=== PATIENT | male | born 1995 | race Two or more races ===

== ENCOUNTER 2020-01-02 13:12 | Emergency (ER) | payer SELFPAY ==
[~2020-01-02] VITALS: Ht 180.3 cm; Wt 106.0 kg
[2020-01-02 13:18] VITALS: BP 140/78
[2020-01-02] MEDS ORDERED: LORAZEPAM 2MG/ML CPJ IM STA (13:21)
[2020-01-02] MEDS ORDERED: HALOPERIDOL LACTATE 5MG/ML VIAL IM STA (13:21)
== END 2020-01-02 14:13 | disposition left against medical advice (07) ==
LOC: ER 13:12
DX: F15.10 Other stimulant abuse, uncomplicated (principal)
CPT/HCPCS: 99283